=== PATIENT | male | born 1945 | race Caucasian/White ===

== ENCOUNTER 2022-08-20 04:19 | Day surgery (SDC) | payer OTHER ==
[2022-08-18 15:49] VITALS: BMI 31.1
[~2022-08-20 04:19] MED LIST: ACETAMINOPHEN 325 MG TABLET (FP) PO PRN
[2022-08-20] MEDS ORDERED: POVIDONE-IODINE 5% OPHTHALMIC PREP 30 ML SOLUTION ONE (07:39)
[2022-08-20] MEDS ORDERED: TETRACAINE 0.5% OPHTH SOLN 2 ML BOTTLE ONE (07:39)
[2022-08-20] MEDS ORDERED: LIDOCAINE HCL/PF 1% SDV 5ML VIAL ONE (07:39)
[2022-08-20] MEDS ORDERED: CYCLOPENTOLATE HCL 1% OPHTH SOLN 2 ML BOTTLE ONE (09:21)
[2022-08-20] MEDS ORDERED: KETOROLAC TROMETHAMINE 0.5% EYE DROP 1 DROP DROPS ONE (09:21)
[2022-08-20] MEDS ORDERED: PHENYLEPHRINE 2.5% OPTHALMIC DROP 2ML BOTTLE ONE (09:21)
[2022-08-20] MEDS ORDERED: OFLOXACIN 0.3% OPHTHALMIC SOLUTION 5 ML BOTTLE ONE (09:21)
[2022-08-20] MEDS: OFLOXACIN 0.3% OPHTHALMIC SOLUTION 5 ML BOTTLE OP SCH ×3 (09:30→09:40)
[2022-08-20] MEDS: CYCLOPENTOLATE HCL 1% OPHTH SOLN 2 ML BOTTLE OP SCH ×3 (09:30→09:40)
[2022-08-20] MEDS: TROPICAMIDE 1% OPHTH SOLN 15 ML BOTTLE OP SCH ×3 (09:30→09:40)
[2022-08-20] MEDS: KETOROLAC TROMETHAMINE 0.5% EYE DROP 1 DROP DROPS OP SCH ×3 (09:30→09:40)
[2022-08-20] MEDS: PHENYLEPHRINE 2.5% OPHTH SOLN 15 ML BOTTLE OP SCH ×3 (09:30→09:40)
[2022-08-20] MEDS ORDERED: MIDAZOLAM HCL 2 MG/2 ML SINGLE DOSE VIAL ONE (10:47)
[2022-08-20] MEDS ORDERED: TETRACAINE 0.5% OPHTH SOLN 2 ML BOTTLE OS ONE ×2 (10:50)
[2022-08-20] MEDS ORDERED: POVIDONE-IODINE 5% OPHTHALMIC PREP 30 ML SOLUTION OS ONE (10:54)
[2022-08-20] MEDS ORDERED: LIDOCAINE HCL 1% PRESERVATIVE FREE - 30ML VIAL IO ONE ×2 (10:58)
[2022-08-20] MEDS ORDERED: BSS (NA/CA/MG/K) BALANCED SALT SOLUTION OPHTH SOLN 15 ML BOTTLE OS ONE (10:59)
[2022-08-20] MEDS ORDERED: CHONDROITIN SU A/HYALUR SOD 1 KIT IO ONE (11:00)
[2022-08-20] MEDS ORDERED: PHENYLEPHRINE/KETOROLAC 4 ML VIAL IO ONE (11:05)
[2022-08-20 11:44] VITALS: RESP 18
[2022-08-20 12:05] VITALS: BP 100/60; PULSE 80; TEMP 98
== END 2022-08-20 12:35 | disposition home or self-care (01) ==
LOC: JASU-SURG 04:19
PROVIDERS: ATTEND Ophthalmology
PROC: 08RK3JZ Replacement of Left Lens with Synthetic Substitute, Percutaneous Approach (ICD-10-PCS; principal; 2022-08-20 11:00)
DX: H26.9 Unspecified cataract (principal)
CPT/HCPCS: 82962; J1097; V2632

== ENCOUNTER 2023-07-08 04:28 | Day surgery (SDC) | payer OTHER ==
[2023-07-07 08:39] VITALS: BMI 30.4
[~2023-07-08 04:28] MED LIST changes: +BSS (NA/CA/MG/K) BALANCED SALT SOLUTION OPHTH SOLN 15 ML BOTTLE OD ONE; +CHONDROITIN SU A/HYALUR SOD 1 KIT IO ONE; +EPINEPHrine 1:1,000 1,000 MCG/ML ML SQ ONE; +LIDOCAINE HCL 1% PRESERVATIVE FREE - 30ML VIAL IO ONE; +POVIDONE-IODINE 5% OPHTHALMIC PREP 30 ML SOLUTION OD ONE; +TETRACAINE 0.5% OPHTH SOLN 2 ML BOTTLE OD ONE
[2023-07-08] MEDS ORDERED: PHENYLEPHRINE/KETOROLAC 4 ML VIAL IO ONE (07:31)
[2023-07-08] MEDS ORDERED: TETRACAINE 0.5% OPHTH SOLN 2 ML BOTTLE ONE (07:31)
[2023-07-08] MEDS ORDERED: POVIDONE-IODINE 5% OPHTHALMIC PREP 30 ML SOLUTION ONE (07:31)
[2023-07-08] MEDS ORDERED: LIDOCAINE HCL/PF 1% SDV 5ML VIAL ONE (07:31)
[2023-07-08] MEDS ORDERED: KETOROLAC TROMETHAMINE 0.5% EYE DROP 1 DROP DROPS ONE (09:10)
[2023-07-08] MEDS ORDERED: TROPICAMIDE 1% OPHTH SOLN 15 ML BOTTLE ONE (09:10)
[2023-07-08] MEDS ORDERED: PHENYLEPHRINE 2.5% OPTHALMIC DROP 2ML BOTTLE ONE (09:10)
[2023-07-08] MEDS ORDERED: CYCLOPENTOLATE HCL 1% OPHTH SOLN 2 ML BOTTLE ONE (09:10)
[2023-07-08] MEDS ORDERED: OFLOXACIN 0.3% OPHTHALMIC SOLUTION 5 ML BOTTLE ONE (09:10)
[2023-07-08] MEDS: TROPICAMIDE 1% OPHTH SOLN 15 ML BOTTLE OP SCH ×3 (09:15→09:25)
[2023-07-08] MEDS: PHENYLEPHRINE 2.5% OPHTH SOLN 15 ML BOTTLE OP SCH ×3 (09:15→09:25)
[2023-07-08] MEDS: OFLOXACIN 0.3% OPHTHALMIC SOLUTION 5 ML BOTTLE OP SCH ×3 (09:15→09:25)
[2023-07-08] MEDS: KETOROLAC TROMETHAMINE 0.5% EYE DROP 1 DROP DROPS OP SCH ×3 (09:15→09:25)
[2023-07-08] MEDS: CYCLOPENTOLATE HCL 1% OPHTH SOLN 2 ML BOTTLE OP SCH ×3 (09:15→09:25)
[2023-07-08 09:32] VITALS: RESP 18
[2023-07-08] MEDS ORDERED: MIDAZOLAM HCL 2 MG/2 ML SINGLE DOSE VIAL ONE (10:03)
[2023-07-08] MEDS ORDERED: ONDANSETRON 4 MG/2 ML VIAL ONE (10:03)
[2023-07-08] MEDS ORDERED: TETRACAINE 0.5% OPHTH SOLN 2 ML BOTTLE OD ONE (11:00)
[2023-07-08] MEDS ORDERED: POVIDONE-IODINE 5% OPHTHALMIC PREP 30 ML SOLUTION OD ONE (11:03)
[2023-07-08] MEDS ORDERED: LIDOCAINE HCL 1% PRESERVATIVE FREE - 30ML VIAL IO ONE (11:09)
[2023-07-08] MEDS ORDERED: CHONDROITIN SU A/HYALUR SOD 1 KIT IO ONE (11:12)
[2023-07-08] MEDS ORDERED: BSS (NA/CA/MG/K) BALANCED SALT SOLUTION OPHTH SOLN 15 ML BOTTLE OD ONE (11:12)
[2023-07-08] MEDS ORDERED: EPINEPHrine 1:1,000 1,000 MCG/ML ML SQ ONE (11:17)
[2023-07-08] MEDS ORDERED: ACETAMINOPHEN 325 MG TABLET (FP) ONE (11:51)
[2023-07-08 14:08] VITALS: BP 106/67; PULSE 74; TEMP 97.9
== END 2023-07-08 12:43 | disposition home or self-care (01) ==
LOC: JASU-SURG 04:28
PROVIDERS: ATTEND Ophthalmology
PROC: 08RJ3JZ Replacement of Right Lens with Synthetic Substitute, Percutaneous Approach (ICD-10-PCS; principal; 2023-07-08 11:00)
DX: H26.9 Unspecified cataract (principal)
CPT/HCPCS: 82962; J1097; V2632

== ENCOUNTER 2024-10-14 20:18 | Emergency (ER) | payer OTHER ==
[2024-10-14 20:52] VITALS: BMI 26.5
[2024-10-14] MEDS: ACETAMINOPHEN 1000 MG/100 ML BAG IVPB ONE (21:08)
[2024-10-14] MEDS ORDERED: ACETAMINOPHEN INJECTION 100 ML ONE (21:08)
[2024-10-14 21:33] LABS: ABSOLUTE IMMATURE GRANULOCYTES 0.05 x10^3/uL (0.0-0.031); BASOPHILS # 0.03 x10^3/uL (0.01-0.08); EOSINOPHIL % 1.7 % (0.8-7.0); EOSINOPHILS # 0.15 x10^3/uL (0.04-0.54); HEMATOCRIT 33.6 % (40.1-51.0); HEMOGLOBIN 10.9 g/dL (13.7-17.5); MCHC 32.4 g/dl (32.3-36.5); MEAN CELL VOLUME 85.9 fl (79.0-92.2); MEAN PLT VOLUME 8.4 fl (9.4-12.4); MONOCYTE # 0.41 x10^3/uL (0.30-0.82); MONOCYTE % 4.5 % (5.3-12.2); PLATELET COUNT 265 x10^3/uL (163-337); RDW 14.3 % (12.2-16.6)
[2024-10-14 21:36] LABS: EPI CELLS 23 /uL (0-25.1); HYALINE CASTS 0 /uL (0-3.1); PH,URINE 5.5 (5.0-8.0); URINE APPEARANCE TURBID; URINE BACTERIA 386 /uL (0-1359); URINE BILIRUBIN NEGATIVE (NEGATIVE); URINE COLOR YELLOW; URINE GLUCOSE (UA) NEGATIVE (NEGATIVE); URINE KETONE 1+ (NEGATIVE); URINE LEUK ESTERASE 3+ (NEGATIVE); URINE NITRITE NEGATIVE (NEGATIVE); URINE PROTEIN 2+ (NEGATIVE); URINE WBC 12126 /uL (0-25.8)
[2024-10-14 21:40] LABS: INR 1.45 (0.83-1.09); PROTHROMBIN TIME (PATIENT) 15.8 SEC (9.7-13.0)
[2024-10-14 21:43] LABS: ACTIVATED PTT 30.2 SECONDS (25.2-36.5)
[2024-10-14 21:59] LABS: POTASSIUM 5.2 mmol/L (3.5-5.1)
[2024-10-14 22:01] LABS: ALBUMIN 2.6 g/dl (3.4-5.0); BLOOD UREA NITROGEN 20.2 mg/dL (7-18); CALCIUM 9.5 mg/dL (8.5-10.1); MAGNESIUM 2.1 mg/dL (1.8-2.4)
[2024-10-14 22:04] LABS: CREATININE 1.5 mg/dL (0.55-1.3)
[2024-10-14 22:06] LABS: BILIRUBIN,TOTAL 0.8 mg/dL (0.2-1)
[2024-10-14] MEDS: CEFTRIAXONE 500 MG in DEXTROSE 5%-WATER - 50 ML IVPB ONE (22:21)
[2024-10-14 22:55] LABS: HCV DIAGNOSTIC IN-HOUSE W/RFLX NON-REACTIVE (NONREACTIVE)
[2024-10-14 22:56] LABS: HIV INTERPRETATION NEGATIVE (NEGATIVE)
[2024-10-14] MEDS: SODIUM CHLORIDE 0.9% 500 ML INFUS.BAG IV ONE (23:03)
[2024-10-14 23:20] VITALS: BP 100/58; PULSE 92; RESP 16; TEMP 98
[2024-10-14 23:20] LABS: URINE RBC 114.3 /uL (0-23.9)
== END 2024-10-14 23:19 | disposition home or self-care (01) ==
LOC: JER 20:18
PROC: 3E03329 Introduction of Other Anti-infective into Peripheral Vein, Percutaneous Approach (ICD-10-PCS; principal; 2024-10-14)
PROC: 3E033NZ Introduction of Analgesics, Hypnotics, Sedatives into Peripheral Vein, Percutaneous Approach (ICD-10-PCS; 2024-10-14)
DX: N30.90 Cystitis, unspecified without hematuria (principal); R30.0 Dysuria; R10.32 Left lower quadrant pain; R68.83 Chills (without fever); R00.0 Tachycardia, unspecified
CPT/HCPCS: 36415; 74176-TC; 80053; 81003; 83605; 83735; 84484; 85025; 85610; 85730; 86803; 86850; 86900; 86901; 87040; 87086; 87186; 87389; 93005; 93010; 96365; 96375; 99285-25; J0131

== ENCOUNTER 2025-01-31 12:16 | Emergency (ER) | payer OTHER ==
[2025-01-31 12:25] VITALS: TEMP 98.6; BMI 25.0
[2025-01-31 13:42] LABS: MCHC 32.9 g/dl (32.3-36.5); MEAN CELL VOLUME 87.8 fl (79.0-92.2); MEAN PLT VOLUME 8.5 fl (9.4-12.4); RDW 13.0 % (12.2-16.6)
[2025-01-31 13:50] LABS: INR 1.32 (0.83-1.09); PROTHROMBIN TIME (PATIENT) 14.5 SEC (9.7-13.0)
[2025-01-31 13:53] LABS: ACTIVATED PTT 28.9 SECONDS (25.2-36.5)
[2025-01-31 14:34] LABS: HCV DIAGNOSTIC IN-HOUSE W/RFLX NON-REACTIVE (NONREACTIVE); HIV INTERPRETATION NEGATIVE (NEGATIVE)
[2025-01-31 14:46] LABS: GLUCOSE,RANDOM 119 mg/dL (74-106); TOT PROT 7.3 g/dl (6.4-8.2)
[2025-01-31 14:47] LABS: CO2 26 mmol/L (21-32)
[2025-01-31 14:49] LABS: ALK PHOS 64 U/L (40-150)
[2025-01-31 14:51] LABS: SGOT/AST 21 U/L (5-34); SGPT/ALT 21 U/L (0-55)
[2025-01-31 14:52] LABS: CREATININE 1.72 mg/dL (0.55-1.3)
[2025-01-31] MEDS ORDERED: ACETAMINOPHEN 325 MG TABLET (FP) ONE (17:54)
[2025-01-31] MEDS: ACETAMINOPHEN 325 MG TABLET (FP) PO ONE (17:56)
[2025-01-31 18:13] VITALS: BP 108/70; PULSE 99; RESP 20
== END 2025-01-31 18:10 | disposition home or self-care (01) ==
LOC: JER 12:16
DX: R07.89 Other chest pain (principal); R05.9 Cough, unspecified; R00.0 Tachycardia, unspecified; R06.2 Wheezing
CPT/HCPCS: 36415; 71045-TC-FY; 71046-TC-FY; 71275-TC; 80053; 82550; 83735; 84484; 85027; 85379; 85610; 85730; 86803; 87389; 93005; 93010; 99285-25